=== PATIENT | male | born 1965 | race Caucasian/White ===

== ENCOUNTER 2023-02-16 11:03 | Day surgery (SDC) | payer OTHER ==
[2023-02-15 15:54] LABS: Potassium 3.8 mEq/L (3.5-5.1)
[2023-02-16] MEDS ORDERED: Ringers Lactate 1,000 ML IV ONE (11:27)
--- NOTE | 2023-02-16 11:36 | EKG ---
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
[2023-02-16] MEDS ORDERED: propofoL 200 MG/20 ML VIAL IV ONE ×2 (13:24)
[2023-02-16] MEDS ORDERED: LIDOCAINE 1% MPF 5 ML VIAL ONE (13:25)
[2023-02-16 15:04] VITALS: TEMP 97.6
[2023-02-16 15:07] VITALS: BP 199/77; O2SAT 96
== END 2023-02-16 15:00 | disposition home or self-care (01) ==
LOC: OR 11:03
PROVIDERS: ATTEND Surgery
PROC: 0DB98ZX Excision of Duodenum, Via Natural or Artificial Opening Endoscopic, Diagnostic (ICD-10-PCS; 2023-02-16)
PROC: 0DB78ZX Excision of Stomach, Pylorus, Via Natural or Artificial Opening Endoscopic, Diagnostic (ICD-10-PCS; 2023-02-16)
PROC: 0DB68ZX Excision of Stomach, Via Natural or Artificial Opening Endoscopic, Diagnostic (ICD-10-PCS; 2023-02-16)
PROC: 0DB48ZX Excision of Esophagogastric Junction, Via Natural or Artificial Opening Endoscopic, Diagnostic (ICD-10-PCS; 2023-02-16)
PROC: 0DBN8ZX Excision of Sigmoid Colon, Via Natural or Artificial Opening Endoscopic, Diagnostic (ICD-10-PCS; principal; 2023-02-16 13:15)
PROC: 0DBL8ZX Excision of Transverse Colon, Via Natural or Artificial Opening Endoscopic, Diagnostic (ICD-10-PCS; 2023-02-16 13:15)
DX: K62.89 Other specified diseases of anus and rectum (principal); K62.5 Hemorrhage of anus and rectum; K64.9 Unspecified hemorrhoids; Z87.19 Personal history of other diseases of the digestive system; K29.50 Unspecified chronic gastritis without bleeding; K21.00 Gastro-esophageal reflux disease with esophagitis, without bleeding; D12.5 Benign neoplasm of sigmoid colon; D12.3 Benign neoplasm of transverse colon
CPT/HCPCS: 93005; 80048; 36415; 88312; 88313; 88305; 45385; 43239; J2704 ×2; J2001; J7120